=== PATIENT | female | born 1955 | race Caucasian/White ===

== ENCOUNTER 2018-11-03 14:56 | Outpatient (CLI) | payer OTHER ==
--- NOTE | 2018-11-03 16:32 | BD ---
DEXA BONE DENSITY STUDY: HISTORY: A 63-year-old female for screening mammography. COMPARISON: 11/01/2016 FINDINGS: LUMBAR SPINE BMD (g/cm2) T-SCORE L1 0.911 -0.7 L2 0.966 -0.6 L3 0.896 -1.7 L4 0.904 -1.4 TOTAL L1-L4 0.918 -1.2 LEFT FEMORAL NECK 0.800 -0.4 TOTAL PROXIMAL LEFT FEMUR: 0.886 -0.5 IMPRESSION: Osteopenia. This patient has a 10 year WHO fracture risk for a major osteoporotic fracture of 7.1% and for a hip fracture of 0.3%. POS: [facility]
== END 2018-11-03 14:57 | disposition home or self-care (01) ==
LOC: BICMAMMO 14:56
PROVIDERS: ATTEND Obstetrics & Gynecology
DX: Z13.820 Encounter for screening for osteoporosis (principal); M85.88 Other specified disorders of bone density and structure, other site
CPT/HCPCS: 77080

== ENCOUNTER 2019-10-19 18:48 | Observation (INO) | payer OTHER ==
[2019-10-19 19:34] LABS: #Basophils 0.1 thou/uL (0.0-0.2); #Eosinphils 0.3 thou/uL (0.0-0.7); #Lymphocytes 1.4 thou/uL (1.20-3.40); #Monocytes 0.5 thou/uL (0.11-0.59); #Neutrophils 3.6 thou/uL (1.40-6.50); %Basophils 1.1 % (0.0-1.0); %Eosinophils 4.4 % (0.0-10.0); %Lymphocytes 24.4 % (21.0-51.0); %Monocytes 8.6 % (0.0-10.0); %Neutrophils 61.6 % (42.0-75.0); Mean Corpuscular HGB CONC 33.3 g/dL (32.0-36.0); Mean Corpuscular Hemoglobin 30.3 pg (27.0-31.0); Mean Corpuscular Volume 90.9 fL (78.0-98.0); Mean Platelet Volume 9.3 fL (7.4-10.4); Platelet Count 168 thou/uL (130-400); RBC Distribution Width 13.4 % (11.5-14.5); Red Blood Cell (RBC) Count 4.64 mill/uL (4.20-5.40); White Blood Cell (WBC) Count 5.9 thou/uL (4.8-10.8)
[2019-10-19] MEDS ORDERED: Nitroglycerin 0.4 MG TAB 1 EACH ONE (19:50)
[2019-10-19 19:56] LABS: ALT (SGPT) 22 U/L (8-55); AST (SGOT) 17 U/L (5-34); Albumin 4.2 g/dL (3.4-4.8); Alkaline Phosphatase 87 U/L (40-110); Anion Gap 9 mmol/L (10-20); BUN (Urea Nitrogen) 19 mg/dL (9.8-20.1); Bilirubin, Total 0.4 mg/dL (0.2-1.2); Calc. Creatinine Clearance 0 mL/min (70-130); Calcium 9.7 mg/dL (7.8-10.44); Carbon Dioxide 29 mmol/L (23-31); Chloride 107 mmol/L (98-107); Estimated GFR-MDRD 60; Globulin 3.2 g/dL (2.4-3.5); Glucose 97 mg/dL (80-115); Potassium 4.3 mmol/L (3.5-5.1); Protein, Total 7.4 g/dL (6.0-8.3); Sodium 141 mmol/L (136-145)
--- NOTE | 2019-10-19 20:33 | RAD ---
Exam: Chest one view HISTORY:Chest pain Comparison: 02/03/2016 FINDINGS: Cardiac silhouette: Normal Aorta: Unremarkable Pulmonary vessels: Normal Costophrenic angles: Clear LUNGS: No masses or consolidation. Pneumothorax: None Osseous abnormalities: None IMPRESSION: No acute cardiopulmonary process.
[2019-10-19] MEDS ORDERED: Ketorolac Tromethamine 30 MG/ML VIAL ONE (20:39)
[2019-10-19] MEDS ORDERED: Acetaminophen 325 MG TAB PO PRN (22:45)
[2019-10-19] MEDS ORDERED: HYDROcodone/Acetaminophen 5/325 mg Tablet PO PRN (22:45)
[2019-10-19] MEDS ORDERED: Acetaminophen 650 MG Suppository PR PRN (22:45)
[2019-10-19] MEDS ORDERED: Nitroglycerin 0.4 MG TAB (25 Tab Bottle) PO PRN (22:45)
--- NOTE | 2019-10-19 22:51 | PDOC.HHP ---
Hospitalist HPI - History of Present Illness chest pain History of Present Illness: Case of an 64y/o female with pmhx of hypothyroidism and breast ca s/p b/l resection and reconstruction who comes to hospital due to chest pain. patient states that she has been having chest pain on and off for about a week. pain is described as dull, 6/10 radiates to the back and L arm. is associated with SOB, palpitations and nausea denies diaphoresis. patient does states that after reconstruction she has had paresthesias on her scars Hospitalist ROS - Review of Systems All other systems reviewed; all pertinent +/- noted in HPI/Subj Hospitalist History - Past Surgical History Past Surgical History: reports: (x4) Other Surgical History: b/l mastectomy w reconstruction - Social History Smoking Status: Never smoker Alcohol: reports: None Drugs: reports: none Living Situation: With Family - Exam General Appearance: NAD, awake alert Eye: PERRL, anicteric sclera ENT: normocephalic atraumatic, no oropharyngeal lesions Neck: supple, symmetric, no JVD Heart: RRR, no murmur, no gallops Respiratory: CTAB, no wheezes, no rales Gastrointestinal: soft, non-tender, non-distended Extremities: no cyanosis, no clubbing, no edema Skin: normal turgor, no lesions, no rashes Neurological: cranial nerve grossly intact, normal sensation to touch Musculoskeletal: normal tone, normal strength, no muscle wasting Psychiatric: normal affect, normal behavior, A&O x 3 Hospitalist Results - Labs Result Diagrams: 10/19/19 19:24 10/19/19 19:24 Lab results: WBC 5.9 thou/uL (4.8-10.8) 10/19/19 19:24 Hgb 14.0 g/dL (12.0-16.0) 10/19/19 19:24 Hct 42.2 % (36.0-47.0) 10/19/19 19:24 MCV 90.9 fL (78.0-98.0) 10/19/19 19:24 Plt Count 168 thou/uL (130-400) 10/19/19 19:24 Neutrophils % 61.6 % (42.0-75.0) 10/19/19 19:24 Sodium 141 mmol/L (136-145) 10/19/19 19:24 Potassium 4.3 mmol/L (3.5-5.1) 10/19/19 19:24 Chloride 107 mmol/L (98-107) 10/19/19 19:24 Carbon Dioxide 29 mmol/L (23-31) 10/19/19 19:24 BUN 19 mg/dL (9.8-20.1) 10/19/19 19:24 Creatinine 0.94 mg/dL (0.6-1.1) 10/19/19 19:24 Glucose 97 mg/dL (80-115) 10/19/19 19:24 Calcium 9.7 mg/dL (7.8-10.44) 10/19/19 19:24 Total Bilirubin 0.4 mg/dL (0.2-1.2) 10/19/19 19:24 AST 17 U/L (5-34) 10/19/19 19:24 ALT 22 U/L (8-55) 10/19/19 19:24 Alkaline Phosphatase 87 U/L (40-110) 10/19/19 19:24 Troponin I Less than 0.010 ng/mL (< 0.028) 10/19/19 19:24 Serum Total Protein 7.4 g/dL (6.0-8.3) 10/19/19 19:24 Albumin 4.2 g/dL (3.4-4.8) 10/19/19 19:24 - EKG Interpretation EKG: no st inshcmic changes - Radiology Interpretation Chest x-ray Additional Comment: cxr w/o cardiomegaly consolidations or effusions Hospitalist H&P A/P - Problem (1) Chest pain Code(s): R07.9 - CHEST PAIN, UNSPECIFIED Status: Acute (2) Hypothyroidism Code(s): E03.9 - HYPOTHYROIDISM, UNSPECIFIED Status: Acute (3) Hx of breast cancer Code(s): Z85.3 - PERSONAL HISTORY OF MALIGNANT NEOPLASM OF BREAST Status: Acute - Plan Plan: 64y/o female w the stated pmhx who present with atypical chest pain chest pain - obs - telemetry monitoring - serial troponins, initial one negative - 2d echo - evaluation on modifiable risk factors with lipid panel and a1c - stared on beta tl acei and statin prophylactically hypothyrodisim - continue home meds - evaluated tsh
[2019-10-20 00:03] VITALS: BMI 23.9
[2019-10-20] MEDS: HYDROcodone/Acetaminophen 5/325 mg Tablet PO PRN ×3 (00:12→17:40)
[2019-10-20] MEDS ORDERED: hydrALAZINE 20 MG/ML VIAL SLOW IVP PRN ×2 (00:37→04:27)
[2019-10-20 03:22] LABS: Troponin I 0.017 ng/mL (< 0.028)
[2019-10-20 04:43] LABS: Hemoglobin A1c 5.5 % (4.0-6.0)
[2019-10-20 04:46] LABS: Band 3 % (5-11); Eosinophils 3 % (0-10); Hemoglobin 12.7 g/dL (12.0-16.0); Lymphocytes 33 % (21-51); MDiff Complete? YES; Mean Corpuscular HGB CONC 32.7 g/dL (32.0-36.0); Mean Corpuscular Hemoglobin 29.9 pg (27.0-31.0); Mean Corpuscular Volume 91.5 fL (78.0-98.0); Mean Platelet Volume 9.5 fL (7.4-10.4); Monocytes 8 % (0-10); Neutrophil 53 % (42-75); Platelet Count 152 thou/uL (130-400); Platelet Morphology Comment Appears Adequate; RBC Distribution Width 13.4 % (11.5-14.5); Red Blood Cell (RBC) Count 4.25 mill/uL (4.20-5.40)
[2019-10-20 04:52] LABS: ALT (SGPT) 20 U/L (8-55); AST (SGOT) 15 U/L (5-34); Albumin 3.8 g/dL (3.4-4.8); Alkaline Phosphatase 78 U/L (40-110); Anion Gap 11 mmol/L (10-20); BUN (Urea Nitrogen) 22 mg/dL (9.8-20.1); Bilirubin, Total 0.3 mg/dL (0.2-1.2); Calc. Creatinine Clearance 66 mL/min (70-130); Calcium 9.1 mg/dL (7.8-10.44); Carbon Dioxide 25 mmol/L (23-31); Cardiac Risk 3.5 (Less than 4.5); Chloride 107 mmol/L (98-107); Cholesterol 158 mg/dl (< 200 Desired); Estimated GFR-MDRD 63; Globulin 2.9 g/dL (2.4-3.5); Glucose 96 mg/dL (80-115); HDL Cholesterol 45 mg/dL (>60 Neg Risk); LDL Cholesterol, Calculated 95 mg/dL; Potassium 4.1 mmol/L (3.5-5.1); Protein, Total 6.7 g/dL (6.0-8.3); Sodium 139 mmol/L (136-145); Triglycerides 92 mg/dL (Less than 150)
[2019-10-20] MEDS ORDERED: Metoprolol Tartrate 25 MG TAB PO SCH (09:00)
[2019-10-20] MEDS ORDERED: Lisinopril 10 MG TAB PO SCH (09:00)
[2019-10-20] MEDS ORDERED: Aspirin 325 mg Enteric Coated Tablet PO SCH (09:00)
[2019-10-20] MEDS ORDERED: Enoxaparin Sodium 40 MG/0.4 ML SYRINGE SC SCH (09:00)
[2019-10-20] MEDS ORDERED: ADENOSINE 60 MG/20 ML VIAL ONE (11:41)
[2019-10-20 12:22] LABS: SARS-CoV-2 MS2 Positive; SARS-CoV-2 N Gene Negative; SARS-CoV-2 S Gene Negative; SARS-CoV-2 by NAA Not Detected (NotDetected); SARS-CoV-2 orf1ab Negative
--- NOTE | 2019-10-20 13:32 | NM ---
EXAM: CARDIAC SPECT HISTORY: Chest pain TECHNIQUE: A myocardial perfusion scan was performed using the single isotope 1 day protocol with deneen hnetium 99m sestamibi. [10 mCi] was injected intravenously for the rest exam followed by 30 mCi for the stress study. Pharmacologic stress with adenosine was monitored and interpreted by Dr. Barrera FINDINGS: Homogeneous tracer distribution is seen in the myocardial segments on stress and rest image s without fixed or reversible defects. Gated SPECT LVEF: 84% Wall motion exam: Normal IMPRESSION: Normal myocardial perfusion scan
[2019-10-20 14:15] VITALS: TEMP 97.9
[2019-10-20 15:48] VITALS: BP 147/67
--- NOTE | 2019-10-20 17:26 | DIS ---
DATE OF ADMISSION: 10/19/2019 DATE OF DISCHARGE: 10/20/2019 DISCHARGE DISPOSITION: To home. PRIMARY DISCHARGE DIAGNOSIS: Chest pain, which is noncardiac. SECONDARY DISCHARGE DIAGNOSES: 1. History of breast cancer with bilateral mastectomies. 2. Hypertension. 3. Hypothyroidism. PROCEDURES DONE DURING HOSPITALIZATION: Chest x-ray done showed no acute cardiopulmonary process. Nuclear stress test done showed ejection fraction of 84% with normal wall motion. This was a normal myocardial perfusion scan. H and H 12 and 38 and platelet count 152. Total cholesterol 158, triglycerides 92, LDL 95 , HDL 45, TSH 3.68. Troponin x3 negative. COVID-19 PCR was not detected on 2019. DISCHARGE MEDICATIONS: 1. Singulair 10 mg p.o. at bedtime. 2. Multivitamin one capsule daily. 3. Lipitor 20 mg p.o. at bedtime. 4. Lisinopril 10 mg p.o. daily. 5. Levothyroxine 75 mcg p.o. daily. 6. Vitamin B12, 5000 mcg p.o. daily. ALLERGIES: ALLERGIC TO CODEINE. BRIEF COURSE DURING HOSPITALIZATION: The patient initially came in with complaints of retrosternal chest pain, going towards her back. In view of this history, she was placed under observation on telemetry. She has known history of breast cancer and has had bilateral mastectomies. She has not had any chemo or radiation therapy for her breast cancer. She has had a nuclear stress test done which showed no reversible ischemia. The patient's chest pain has eased up. If her pain were to get worse, she probably will need a thoracic spine CAT scan to rule out thoracic spine fractures. She is otherwise hemodynamically stable and will be shortly discharged home. Please note, I have seen and examined the patient on the day of discharge. Job ID: [id number] MTDD
[2019-10-20] MEDS ORDERED: Atorvastatin Calcium 20 MG TAB PO SCH (21:00)
[2019-10-20] MEDS ORDERED: Prevnar 13-Val Conj/PF 0.5 ML SYRINGE IM ONE (21:00)
== END 2019-10-20 18:10 | disposition home or self-care (01) ==
LOC: ERS 18:48 → 2NO 21:58
PROVIDERS: ADMIT Internal Medicine; ATTEND Internal Medicine
DX: R07.89 Other chest pain (principal); I10 Essential (primary) hypertension; E03.9 Hypothyroidism, unspecified; Z85.3 Personal history of malignant neoplasm of breast; Z79.899 Other long term (current) drug therapy; Z88.5 Allergy status to narcotic agent; Z20.828 Contact with and (suspected) exposure to other viral communicable diseases
CPT/HCPCS: 36415; 71045; 78452; 80053; 80061; 83036; 84443; 84484; 85007; 85025; 85027; 87635; 93005; 93017; 93306; 94760; 96374; A9500; G0378; J0153; J1885; U0003

== ENCOUNTER 2022-12-14 14:05 | Observation (INO) | payer MEDICARE ==
[~2022-12-14 14:05] MED LIST: Iopamidol-370 76% 500 ML MDV (1 ML CHARGE) ONE
[2022-12-14 15:01] LABS: #Basophils 0.1 thou/uL (0.0-0.2); #Eosinphils 0.2 thou/uL (0.0-0.7); #Monocytes 0.5 thou/uL (0.11-0.59); #Neutrophils 4.3 thou/uL (1.40-6.50); %Basophils 0.8 % (0.0-1.0); %Eosinophils 2.7 % (0.0-10.0); %Monocytes 7.2 % (0.0-10.0); Hematocrit 43.9 % (36.0-47.0); Mean Corpuscular HGB CONC 31.9 g/dL (32.0-36.0); Mean Corpuscular Hemoglobin 29.5 pg (27.0-31.0); Mean Corpuscular Volume 92.6 fl (78.0-98.0); Mean Platelet Volume 10.7 fL (7.4-10.4); Platelet Count 198 10x3/uL (130-400); RBC Distribution Width 14.6 % (11.5-14.5); Red Blood Cell (RBC) Count 4.74 mill/uL (4.20-5.40); White Blood Cell (WBC) Count 6.3 10x3/uL (4.8-10.8)
[2022-12-14 15:29] LABS: ALT (SGPT) 28 U/L (8-55); AST (SGOT) 22 U/L (5-34); Albumin 4.2 g/dL (3.4-4.8); Alkaline Phosphatase 88 U/L (40-110); Anion Gap 17 mmol/L (10-20); BUN (Urea Nitrogen) 17 mg/dL (9.8-20.1); Bilirubin, Total 0.4 mg/dL (0.2-1.2); Calc. Creatinine Clearance 0 mL/min (70-130); Calcium 9.9 mg/dL (7.8-10.44); Carbon Dioxide 21 mmol/L (23-31); Chloride 105 mmol/L (98-107); Estimated GFR 61; Globulin 3.3 g/dL (2.4-3.5); Glucose 87 mg/dL (80-115); Lipase 6 U/L (8-78); Potassium 4.5 mmol/L (3.5-5.1); Protein, Total 7.5 g/dL (5.8-8.1); Sodium 138 mmol/L (136-145)
[2022-12-14 18:58] LABS: Bacteria/HPF None Seen HPF (None Seen); Bilirubin Negative (Negative); Blood, Urine Negative (Negative); CAUTI Indications for Culture Pelvic or flank pain; Clarity Clear (Clear); Glucose, Urine (Dipstick) Normal (Negative); Ketone, Urine 20 mg/dL (Negative); Leukocyte 75 Leu/uL (Negative); Nitrite Negative (Negative); Protein, Urine (Dipstick) Negative (Neg-Trace); RBC/HPF 0-3 HPF (0-3); Urobilinogen Normal mg/dL (Less than 2); pH, Urine 6.5 (5.0-9.0)
[2022-12-14 19:00] LABS: Specific Gravity, Urine Greater than 1.060 (1.002-1.036)
[2022-12-14 19:01] LABS: Urine Culture Reflex No No
[2022-12-14] MEDS ORDERED: Piperacillin/Tazobactam 3.375 GM VIAL ONE (20:28)
[2022-12-14] MEDS ORDERED: traMADol HCl 50 MG TAB PO PRN (20:40)
[2022-12-14] MEDS ORDERED: TETANUS, DIPHTHERIA TOX,ADULT (TDVAX) 0.5 ML VIAL IM ONE (20:40)
[2022-12-14] MEDS ORDERED: Ondansetron ODT 4 MG TAB PO PRN (20:40)
[2022-12-14] MEDS ORDERED: hydrALAZINE 20 MG/ML VIAL SLOW IVP PRN (20:40)
[2022-12-14] MEDS ORDERED: Ipratropium/Albuterol 3 ML NEB NEB PRN (20:40)
[2022-12-15] MEDS: Famotidine 20 MG TAB PO SCH ×2 (00:05→08:08)
[2022-12-15] MEDS: Acetaminophen 325 MG TAB PO SCH ×4 (00:05→14:54)
[2022-12-15] MEDS: Piperacillin/Tazobactam 3.375 GM in Sodium Chloride 0.9% 100 ML IVPB SCH ×3 (00:13→14:54)
[2022-12-15 01:38] VITALS: BMI 27.7
[2022-12-15 05:11] LABS: #Eosinphils 0.2 thou/uL (0.0-0.7); #Monocytes 0.6 thou/uL (0.11-0.59); #Neutrophils 3.3 thou/uL (1.40-6.50); %Basophils 0.7 % (0.0-1.0); %Eosinophils 3.1 % (0.0-10.0); %Lymphocytes 24.4 % (21.0-51.0); %Monocytes 10.3 % (0.0-10.0); %Neutrophils 61.3 % (42.0-75.0); Hemoglobin 13.2 g/dL (12.0-16.0); Mean Corpuscular HGB CONC 32.2 g/dL (32.0-36.0); Mean Corpuscular Hemoglobin 29.5 pg (27.0-31.0); Mean Corpuscular Volume 91.7 fl (78.0-98.0); Mean Platelet Volume 10.9 fL (7.4-10.4); Platelet Count 187 10x3/uL (130-400); RBC Distribution Width 14.6 % (11.5-14.5); Red Blood Cell (RBC) Count 4.47 mill/uL (4.20-5.40); White Blood Cell (WBC) Count 5.4 10x3/uL (4.8-10.8)
[2022-12-15 05:31] LABS: Anion Gap 13 mmol/L (10-20); BUN (Urea Nitrogen) 19 mg/dL (9.8-20.1); Calc. Creatinine Clearance 67 mL/min (70-130); Calcium 9.5 mg/dL (7.8-10.44); Carbon Dioxide 25 mmol/L (23-31); Chloride 108 mmol/L (98-107); Estimated GFR 67; Glucose 103 mg/dL (80-115); Potassium 4.2 mmol/L (3.5-5.1); Sodium 142 mmol/L (136-145)
[2022-12-15] MEDS ORDERED: EPINEPHrine 1 MG/ML AMP ONE (07:33)
[2022-12-15] MEDS ORDERED: Bupivacaine 0.25% HCL 30 ML VIAL ONE (07:33)
[2022-12-15] MEDS ORDERED: Piperacillin/Tazobactam 3.375 GM VIAL ONE (08:00)
[2022-12-15] MEDS ORDERED: Sodium Chloride 0.9% 100 ML ONE (08:00)
[2022-12-15] MEDS ORDERED: Fentanyl 250 MCG/5 ML VIAL ONE (08:15)
[2022-12-15] MEDS ORDERED: SUGAMMADEX SODIUM 200 MG/2 ML VIAL ONE (08:15)
[2022-12-15] MEDS ORDERED: Lidocaine 2% 6 ML (Jelly) SYR ONE (08:17)
[2022-12-15] MEDS ORDERED: Dexmedetomidine 200 MCG/2 ML VIAL ONE (08:17)
[2022-12-15] MEDS ORDERED: Esmolol 100 MG/10 ML VIAL ONE (08:30)
[2022-12-15] MEDS ORDERED: Lidocaine 1% PF 5 ML VIAL ONE (08:30)
[2022-12-15] MEDS ORDERED: ePHEDrine Sulfate 50 MG/10 ML VIAL ONE (08:30)
[2022-12-15] MEDS ORDERED: Rocuronium Bromide 10 MG/ML (10ML VIAL) ONE (08:30)
[2022-12-15] MEDS ORDERED: Dexamethasone 20 MG/5 ML VIAL ONE (08:30)
[2022-12-15] MEDS ORDERED: PROPOFOL 200 MG/20 ML VIAL ONE (08:30)
[2022-12-15] MEDS ORDERED: Ondansetron PF 4 MG/2 ML Vial ONE (08:30)
[2022-12-15] MEDS ORDERED: Ondansetron HCl/PF 4 MG/2 ML Vial IVP PRN (09:35)
[2022-12-15] MEDS ORDERED: Promethazine HCl 25 MG/ML VIAL IM PRN (09:35)
[2022-12-15] MEDS ORDERED: Promethazine HCl 25 MG/ML VIAL ONE (09:53)
[2022-12-15] MEDS ORDERED: Acetaminophen/Codeine 30-300mg Tablet PO PRN (10:05)
[2022-12-15] MEDS ORDERED: fentaNYL 50 mcg/mL 1 mL Vial ONE (10:09)
[2022-12-15 20:03] VITALS: BP 127/68; TEMP 97.6
== END 2022-12-15 19:50 | disposition home or self-care (01) ==
LOC: ERS 14:05 → SURG A 20:18
PROVIDERS: ADMIT Student in an Organized Health Care Education/Training Program; ATTEND Student in an Organized Health Care Education/Training Program
PROC: 0DTJ4ZZ Resection of Appendix, Percutaneous Endoscopic Approach (ICD-10-PCS; principal; 2022-12-15)
DX: K35.80 Unspecified acute appendicitis (principal); E03.9 Hypothyroidism, unspecified; Z79.890 Hormone replacement therapy; Z79.899 Other long term (current) drug therapy; Z90.13 Acquired absence of bilateral breasts and nipples; Z87.59 Personal history of other complications of pregnancy, childbirth and the puerperium; Z88.5 Allergy status to narcotic agent
CPT/HCPCS: 44970; 74177; 80048; 80053; 81001 ×2; 83690; 85025 ×2; 96365; 96366; 99285; A4314; C1776; G0378 ×3; J3010; 36415; 88304; A4649; J0171; J1100; J2405; J2543; J2550; J2704; J3490; Q9967; S0020

== ENCOUNTER 2023-08-16 14:23 | Outpatient (CLI) | payer MEDICARE | END 2023-08-16 14:24 | disposition home or self-care (01) | LOC: BICMAMMO 14:23 | PROVIDERS: ATTEND Internal Medicine | DX: Z13.820 Encounter for screening for osteoporosis (principal); Z78.0 Asymptomatic menopausal state; M85.88 Other specified disorders of bone density and structure, other site | CPT/HCPCS: 77080 ==